=== PATIENT | female | born 1980 | race Caucasian/White ===

== ENCOUNTER 2017-06-14 09:33 | Emergency (ER) | payer SELFPAY ==
[~2017-06-14] VITALS: Ht 165.1 cm; Wt 98.0 kg
[2017-06-14 10:25] VITALS: Ht 165.1 cm; Wt 98.0 kg
[2017-06-14 13:05] VITALS: BP 110/76
== END 2017-06-14 13:05 | disposition home or self-care (01) ==
LOC: ED 09:33
DX: J15.9 Unspecified bacterial pneumonia (principal)